=== PATIENT | male | born 1950 | race Caucasian/White ===

== ENCOUNTER 2017-05-17 14:34 | Emergency (ER) | payer MEDICARE, MEDICAID ==
[~2017-05-17 14:34] MED LIST: ABREVA2 GM TP; ADULT ASPIRIN81 MG PO; ADVAIR 10028 BLISTER INH; ALBUTEROL0.83 MG/ML INH; ANTIVERT25 MG PO; ASPIRIN81 M1 PO; BENEDRYL; CHEST CONGESTI400 MG PO; COUMADIN2.5 MG PO; COUMADIN5 MG PO; DELTASONE10 MG PO; FISH OIL 1,0001 CAP PO; LIPITOR; LOVASTATIN40 MG PO; LOVENOX120 MG/0.8 SQ; METOPROLOL TART25 MG PO; PREDNISONE20 MG; PREDNISONE20 MG PO; SPIRIVA18 MCG IH; TOPROL XL25 MG PO; VENTOLIN HFA18 GM IH
[2017-05-17] MEDS ORDERED: SYNTHROID137 MC1 PO (14:44)
[2017-05-17] MEDS ORDERED: ISOSORBIDE (14:44)
== END 2017-05-17 15:28 ==
LOC: EDMED 14:34
DX: T18.128A Food in esophagus causing other injury, initial encounter (principal); J44.9 Chronic obstructive pulmonary disease, unspecified